=== PATIENT | female | born 1970 | race African-American/Black ===

== ENCOUNTER 2017-11-15 04:04 | Inpatient (IN) | payer OTHER, MEDICAID ==
[~2017-11-15] VITALS: Ht 157.5 cm; Wt 51.7 kg
[2017-11-15] MEDS ORDERED: ALBUTEROL (0.083%) 2.5MG/3ML NEB HHN STA (04:55)
[2017-11-15] MEDS ORDERED: IPRATROPIUM BROMIDE (0.02%) 0.5MG/2.5ML NEB HHN STA (04:55)
[2017-11-15] MEDS ORDERED: METHYLPREDNISOLONE SOD SUCC 125 MG/2 ML VIAL IV STA (04:55)
[2017-11-15] MEDS ORDERED: IPRATROPIUM/ALBUTEROL 0.5-3(2.5)MG/3ML NEB ONE (05:11)
[2017-11-15] MEDS ORDERED: ALBUTEROL (0.5%) 2.5MG/0.5ML NEB HHN ONE (05:11)
[2017-11-15] MEDS ORDERED: MAGNESIUM 2 G PREMIX 50 ML IV ONE (05:15)
[2017-11-15] MEDS ORDERED: ALBUTEROL (0.083%) 2.5MG/3ML NEB HHN ONE (07:15)
[2017-11-15] MEDS ORDERED: MAGNESIUM/ALUMINUM HYDROXIDE/SIMETHICONE 30ML UDC PO PRN (08:00)
[2017-11-15] MEDS ORDERED: GUAIFENESIN 200MG/10ML SUGAR FREE UDC PO PRN (08:00)
[2017-11-15] MEDS ORDERED: ACETAMINOPHEN 325MG TABLET PO PRN (08:00)
[2017-11-15] MEDS ORDERED: ONDANSETRON HCL 4MG/2ML VIAL IV PRN (08:00)
[2017-11-15] MEDS ORDERED: DIPHENHYDRAMINE 50MG/ML VIAL IV PRN (08:00)
[2017-11-15] MEDS ORDERED: IPRATROPIUM/ALBUTEROL 0.5-3(2.5)MG/3ML NEB INH PRN (08:00)
[2017-11-15] MEDS ORDERED: LORAZEPAM 2MG/ML CPJ IV PRN (08:00)
[2017-11-15] MEDS ORDERED: CLONIDINE 0.1MG TABLET PO PRN (08:00)
[2017-11-15] MEDS ORDERED: MORPHINE SULFATE 4 MG/ML CPJ (NOT FOR IM USE) IV PRN (08:00)
[2017-11-15] MEDS ORDERED: HYDROCODONE/ACETAMINOPHEN 5/325MG TABLET PO PRN (08:00)
[2017-11-15] MEDS ORDERED: NA PHOS,M-B/NA PHOS,DI-BA ENEMA 118ML PR PRN (08:00)
[2017-11-15 09:00] VITALS: BP 108/61
[2017-11-15] MEDS ORDERED: DOCUSATE SODIUM 100MG CAPSULE PO PRN (09:00)
[2017-11-15 09:09] LABS: CARBON DIOXIDE 25 mEq/L (21-32); CHLORIDE 105 mEq/L (98-107)
[2017-11-15] MEDS: ASPIRIN 81MG EC TABLET PO SCH (09:21)
[2017-11-15] MEDS ORDERED: LEVOFLOXACIN 500MG PREMIX 100 ML IV NR (10:30)
[2017-11-15] MEDS ORDERED: ENOXAPARIN 40MG/0.4ML SYR SUBCUT NR (11:30)
[2017-11-15 12:00] VITALS: BP 102/67
[2017-11-15] MEDS: LEVOFLOXACIN 500MG PREMIX 100 ML IV SCH (13:12)
[2017-11-15] MEDS: METHYLPREDNISOLONE SOD SUCC 125 MG/2 ML VIAL IV SCH ×3 (13:14→23:03)
[2017-11-15 16:00] VITALS: BP 124/58
[2017-11-15 20:00] VITALS: BP 123/69
[2017-11-15] MEDS: IPRATROPIUM/ALBUTEROL 0.5-3(2.5)MG/3ML NEB HHN SCH (20:25)
[2017-11-15] MEDS ORDERED: IPRATROPIUM/ALBUTEROL 0.5-3(2.5)MG/3ML NEB HHN PRN (21:15)
[2017-11-15 22:01] LABS: BG BASE EXCESS 0.9 mmol/L (-2.0-2.0); BG CARBOXYHEMOGLOBIN 0.9 % (0.5-1.5); BG DEOXYHEMOGLOBIN 1.8 % (0.0-5.0); BG FRACTION INSPIRED OXYGEN 21; BG HCO3 ACT 25.2 mmol/L (22.0-26.0); BG METHEMOGLOBIN 0.3 % (0.0-1.5); BG OXYGEN SATURATION 98.2 % (92.0-98.5); BG PH 7.428 (7.350-7.450); BG PO2 103.8 mmHg (75.0-100.0); BG SAMPLE SITE RIGHT RADIAL; BG TOTAL HEMOGLOBIN 13.2 g/dL (12.0-18.0); BG VENT MODE ROOM AIR
[2017-11-15] MEDS: NICOTINE 14MG PATCH TD SCH (23:03)
[2017-11-16] VITALS: BP 121/67
[2017-11-16 00:20] LABS: HEMATOCRIT. 37.7 % (36.0-48.0); HEMOGLOBIN. 12.2 g/dL (12.0-16.0); MEAN CORPUSCULAR HEMOGLOBIN 31.2 pg (28.0-32.0); MEAN CORPUSCULAR VOLUME 96.6 fL (81.0-99.0); MEAN PLATELET VOLUME 8.1 fl (7.4-10.4); PLATELET 336 x1000/uL (130-400); RED CELL DISTRIBUTION WIDTH 14.3 % (11.6-14.6)
[2017-11-16 04:00] VITALS: BP 104/57
[2017-11-16] MEDS: IPRATROPIUM/ALBUTEROL 0.5-3(2.5)MG/3ML NEB HHN SCH ×3 (04:26→11:59)
[2017-11-16] MEDS: METHYLPREDNISOLONE SOD SUCC 125 MG/2 ML VIAL IV SCH ×3 (05:33→17:50)
[2017-11-16 05:53] LABS: HEMATOCRIT. 37.5 % (36.0-48.0); HEMOGLOBIN. 12.5 g/dL (12.0-16.0); MEAN CORPUSCULAR HEMOGLOBIN 32.1 pg (28.0-32.0); MEAN CORPUSCULAR VOLUME 96.1 fL (81.0-99.0); PLATELET 344 x1000/uL (130-400); RED BLOOD CELL COUNT 3.91 mill/uL (4.2-5.4); RED CELL DISTRIBUTION WIDTH 14.5 % (11.6-14.6)
[2017-11-16 07:25] LABS: PLATELET ESTIMATE NORMAL
[2017-11-16 07:33] LABS: CARBON DIOXIDE 25 mEq/L (21-32); CHLORIDE 104 mEq/L (98-107); HDL CHOLESTEROL 79 mg/dL (40-59); LDL CHOLESTEROL 62 mg/dL (5-100); T4 FREE 0.87 ng/dL (0.76-1.46)
[2017-11-16 08:00] VITALS: BP 109/66
[2017-11-16] MEDS: NICOTINE 14MG PATCH TD SCH ×2 (08:53→09:08)
[2017-11-16] MEDS: ASPIRIN 81MG EC TABLET PO SCH (08:53)
[2017-11-16 10:41] LABS: PLATELET ESTIMATE NORMAL
[2017-11-16 11:05] VITALS: BP 109/66
[2017-11-16] MEDS: LEVOFLOXACIN 500MG PREMIX 100 ML IV SCH (11:58)
[2017-11-16 12:00] VITALS: BP 114/60
[2017-11-16] MEDS ORDERED: ENOXAPARIN 40MG/0.4ML SYR SUBCUT SCH (13:00)
[2017-11-16 16:00] VITALS: BP 115/67
== END 2017-11-16 19:31 | disposition home or self-care (01) | DRG 140 ==
LOC: EDUNIT# 04:04 → ER 04:04 → 7WST 07:32 → ENRESERV 07:38 → 7WST 09:15 → UNDODISIN 11-16 17:20
PROVIDERS: ADMIT Internal Medicine; ATTEND Internal Medicine
DX: J44.0 Chronic obstructive pulmonary disease with (acute) lower respiratory infection (principal); J96.00 Acute respiratory failure, unspecified whether with hypoxia or hypercapnia; R65.10 Systemic inflammatory response syndrome (SIRS) of non-infectious origin without acute organ dysfunction; F17.210 Nicotine dependence, cigarettes, uncomplicated; J20.8 Acute bronchitis due to other specified organisms; Z88.0 Allergy status to penicillin; Z72.89 Other problems related to lifestyle
CPT/HCPCS: 36415; 36600; 71045; 80048; 80053; 80061; 81025; 82375; 82805; 84439; 84443; 84484; 85025; 87804; 94640; 96365; 96375; 99285; J1650; J1956; J2930; J3475; J7611; J7620